=== PATIENT | male | born 1940 | race African-American/Black ===

== ENCOUNTER → 2017-06-05 | Outpatient (CLI) | payer MEDICARE, OTHER ==
[~2017-06-05] MED LIST: AMBI10TA PO; AMLO5TAB2 PO; BP MED; FINA5TAB2 PO; GABA300C5 PO; LIPI20TA PO; LISI-591; LISI40TA PO; METF500T PO
[2017-06-05 11:20] LABS: BLOOD, URINE SMALL (NEG); CALCIUM OXALATE CRYSTALS,URINE OCC /hpf; GLUCOSE,URINE NEG (NEG); KETONE, URINE NEG (NEG); NITRITE,URINE NEG (NEG); TRANSITIONAL EPI CELLS, URINE <1 /hpf; URINE COLOR YELLOW (YELLW/STRAW)
[2017-06-05 11:21] LABS: COMMENT (UR) CULTURE INDICATED; CULTURE IF INDICATED CULTURE INDICATED
[2017-06-05 11:25] LABS: APTT (PATIENT) 26.1 SEC (24.3-30.1)
[2017-06-05 11:26] LABS: AUTOMATED NEUTROPHIL # 3.7 TH/MM3 (1.8-7.7); BASOPHIL % 0.6 % (0.0-2.0); EOSINOPHIL # 0.2 TH/MM3 (0-0.4); EOSINOPHIL % 2.5 % (0.0-4.0); HEMATOCRIT 41.6 % (39.0-51.0); HEMO FLAGS DIFF FINAL; LYMPH % 30.1 % (9.0-44.0); LYMPHOCYTE # 1.8 TH/MM3 (1.0-4.8); MEAN CELL VOLUME 90.7 FL (80.0-100.0); MEAN CORPUSCULAR HEMOGLOBIN 30.3 PG (27.0-34.0); MEAN CORPUSCULAR HGB CONC 33.5 % (32.0-36.0); MONO % 6.1 % (0.0-8.0); NEUT % 60.7 % (16.0-70.0); PLATELET COUNT 199 TH/MM3 (150-450); RED BLOOD COUNT 4.58 MIL/MM3 (4.50-5.90); RED CELL DISTRIBUTION WIDTH 14.9 % (11.6-17.2); WHITE BLOOD COUNT 6.1 TH/MM3 (4.0-11.0)
== END ==
LOC: CPRE 10:45
PROVIDERS: ATTEND Orthopaedic Surgery Orthopaedic Surgery of the Spine
DX: Z01.812 Encounter for preprocedural laboratory examination (principal); M96.1 Postlaminectomy syndrome, not elsewhere classified; M53.2X6 Spinal instabilities, lumbar region; R82.90 Unspecified abnormal findings in urine
CPT/HCPCS: 36415; 81001; 85025; 85610; 85730; 87086

== ENCOUNTER 2017-06-25 07:30 | Inpatient (IN) | payer MEDICARE, OTHER ==
[~2017-06-25] VITALS: Ht 177.8 cm; Wt 96.7 kg
[~2017-06-25 07:30] MED LIST changes: -BP MED; -LISI-591
[2017-07-02] MEDS: CHLORHEXIDINE GLUCONATE 2 % 1 PACK (2 CLOTHS) TOPICAL PRN ×2 (06:45→07:30)
[2017-07-02] MEDS ORDERED: METOPROLOL TARTRATE 25 MG TAB PO PRN (07:00)
[2017-07-02] MEDS ORDERED: INSULIN HUMAN REGULAR 1,000 UNITS/10 ML VIAL SQ PRN (07:00)
[2017-07-02] MEDS ORDERED: POVIDONE IODINE 7.5% SCRUB 118 ML BOTTLE TOPICAL SCH (07:00)
[2017-07-02] MEDS ORDERED: ceFAZolin 2 GM PREMIX 50 ML IV SCH (07:00)
[2017-07-02] MEDS ORDERED: LACTATED RINGER'S 1000 ML IV PRN (07:00)
[2017-07-02] MEDS ORDERED: VANCOMYCIN 1000 MG/NS 250 ML (for <70 kg) IV SCH ×2 (07:00)
[2017-07-02] MEDS ORDERED: SODIUM CHLORID 0.9% 500 ML IV PRN (07:00)
[2017-07-02] MEDS ORDERED: POVIDONE IODINE 5% (ANTISEPSIS KIT) 4 APPLICATIONS EACH NARE PRN (07:00)
[2017-07-02] MEDS ORDERED: GENTAMICIN SULFATE 80 MG/2 ML VIAL ONE (08:48)
[2017-07-02] MEDS ORDERED: LIDOCAINE HCL 1% PF 5 ML SYRINGE OTHER ONE (12:00)
[2017-07-02] MEDS ORDERED: PROPOFOL 200 MG/20 ML AMP IV ONE (12:00)
[2017-07-02] MEDS ORDERED: PHENYLEPH/NS 1000 MCG/10 ML SYR IV ONE (12:00)
[2017-07-02] MEDS ORDERED: ONDANSETRON HCL 4 MG/2 ML VIAL IV ONE (12:00)
[2017-07-02] MEDS ORDERED: NEOSTIGMINE 5 MG/5 ML SYRINGE IV PUSH ONE (12:00)
[2017-07-02] MEDS ORDERED: ROCURONIUM INJ 50 MG/5 ML SYRINGE IV PUSH ONE (12:00)
[2017-07-02] MEDS ORDERED: PHENYLEPHRINE HCL 10 MG/ML VIAL IV ONE (12:00)
[2017-07-02] MEDS ORDERED: ePHEDrine/NS 25 MG/5 ML SYR IV ONE (12:00)
[2017-07-02] MEDS ORDERED: GLYCOPYRROLATE 1 MG/5 ML SYRINGE IV PUSH ONE (12:00)
[2017-07-02] MEDS ORDERED: SOD PHOSPHATE/SOD BIPHOSPHATE (ADULT) ENEMA 133ML PR PRN (13:45)
[2017-07-02] MEDS ORDERED: ZOLPIDEM TARTRATE 10 MG TAB PO PRN (13:45)
[2017-07-02] MEDS ORDERED: ONDANSETRON HCL 4 MG/2 ML VIAL IV PUSH PRN (13:45)
[2017-07-02] MEDS ORDERED: MORPHINE SULFATE 30 MG/30 ML PCA IV SCH (13:45)
[2017-07-02] MEDS ORDERED: NALOXONE HCL 0.4 MG/ML AMP IV PUSH PRN (13:45)
[2017-07-02] MEDS ORDERED: ACETAMINOPHEN/HYDROcodone 325 MG/7.5 MG TAB PO PRN (13:45)
[2017-07-02] MEDS ORDERED: BISACODYL 10 MG SUPP RECTAL PRN (13:45)
[2017-07-02] MEDS ORDERED: ALUMINUM/MAGNESIUM/SIMETH 30 ML CUP PO PRN (13:45)
[2017-07-02] MEDS ORDERED: Post-op Orders (for Pharmacy) XX ONE (13:45)
[2017-07-02] MEDS ORDERED: DEXTROSE 50% IN WATER 50 ML VIAL(D50) IV PUSH PRN (13:45)
[2017-07-02] MEDS ORDERED: MORPHINE SULFATE 8 MG/ML INJ IV PUSH PRN (13:45)
[2017-07-02] MEDS ORDERED: GLUCAGON 1 MG/ML VIAL OTHER PRN (13:45)
--- NOTE | 2017-07-02 13:49 | PD.OP ---
cc: Juan Shepherd. Operative Report Date of Surgery: Jul 02, 2017 Preoperative Diagnosis: Lumbar spinal stenosis. Right lumbosacral radiculopathy. Bilateral lumbosacral radiculitis. Foraminal stenosis right L2-3 and L3 4 Herniated nucleus pulposis L2-3, right, foraminal Postoperative Diagnosis: Same Procedure: Bilateral lumbar laminectomy from the right L2-3 with right subtotal facet resection. Bilateral lumbar laminectomy from the right L3 4 with right subtotal facet resection. Placement of interbody cage L2-3 and L3 4. Posterior lateral interbody fusion L2-3 and L3 4. Posterior spinal fusion L2 to L4, lateral transverse process technique. Posterior spinal segmental instrumentation. Bone grafting of the lumbar spine Anesthesia: Gen. Surgeon: Juan Shepherd Tile Power Shear Operator(s): MY Brito Operation and Findings: EBL: 250 ml NOTE: Sondra Brito PA-C was present for the entire surgical procedure as my preschool assistant. In my medical opinion her skill and care was necessary for proper management of this patient INDICATIONS: This patient is a 76-year-old male with neurologic claudication and weakness into the right leg. Investigative studies shows evidence of high- grade stenosis L2-3 and L3 4 with a significant disc into the foramen at L2-3 with foraminal stenosis and degenerative changes L3 4 with foraminal stenosis to the right. The patient presents for lumbar decompression. Because of the instability that will be created because the decompression, fusion across the same levels is recommended INSTRUMENTATION: Spine wave PROCEDURE: The patient brought to the operating room and anesthetized the supine position. The patient positioned prone on the Isra frame on the Faheem table. All pressure points are protected. The back was scrubbed with alcohol followed by Hibiclens followed by ChloraPrep and draped sterilely and antibiotics were given within a routine time window. A timeout was done. Lateral radiographic images used to identify the proper level for the procedure. Compared care for the preoperative studies. Skin markings were made anticipating surgical treatment. A right paramedian incision was made. The lamina and facet joint was exposed. We used a dilating retractor which was positioned over this region. We started at the L2-3 level. The microscope was rolled into the field for visualization. A high-speed bur was used to take the lamina down and doing a subtotal facet resection. There was a very large disc herniation central and to the right extending into the foramen creating a significant exiting L2 nerve root compression as well as lateral recess decompression of the crossing L3 nerve root. The exiting and crossing nerve roots were completely decompressed. A total discectomy was accomplished. The disc space was prepared. All cartilaginous material from the disc space was removed. A combination of demineralized bone matrix and Nucel stem cells were mixed together on the back table.. These were injected into the disc space. The cage was then placed according to electronic musical instrument repairer's recommendation and deployed. Position was satisfactory. Additional bone graft was placed into the disc space. We moved to the L3 4 level and a likewise fashion the outer edge of the lamina and facet joint was exposed. A dilating retractor was positioned over this region. The microscope was rolled into the field. A high-speed bur was used to take the lamina down performing a subtotal facet resection on that side. There was a mild disc herniation but there was significant degenerative changes in a foraminal stenosis which was resected. The exiting and crossing nerve roots were completely decompressed. A total discectomy was accomplished. The disc space was prepared. All cartilaginous material from the disc space was removed. A combination of demineralized bone matrix and Nucel stem cells were mixed together and injected into the disc space. His placed according to electronic musical instrument repairer 's recommendation and deployed. Position was satisfactory. Additional bone graft was placed into the disc space. The outer edge of the facet joint was identified and prepared. Under fluoroscopic images, a bur was used to gain entrance into the pedicle followed by placement of a blunt probe, an awl and placement of proper length screws. Each screw was charged with electric current there are no abnormal potentials registered in either lower extremity. Screws were placed at L2, L3 and L4. A proper length willy was fitted and attached and tightened according to electronic musical instrument repairer's recommendation. The wound was irrigated copiously. Bone grafting was placed along the lateral gutter in the region of the transverse process across this level. This was closed in layers with #1 Vicryl, 2-0 Vicryl and running intradermal 3-0 Vicryl followed by Steri-Strips and benzoin. On the contralateral side a separate exposure was made. The outer edge of the facet joints were identified. A bur was used to gain entrance into the pedicle followed by placement of a probe and proper length screws. Each screw was charged with electric current and no abnormal potentials registered in either lower extremity. The wound was irrigated copiously. Bone graft placed along the transverse process across this level. It was closed in layers using #1 Vicryl, 2-0 Vicryl and running intradermal 3-0 Vicryl followed by Steri-Strips and benzoin. Intraoperative radiographs were obtained. No complication was appreciated. The patient had a sterile dressing applied. The patient was awakened and taken to recovery room in satisfactory condition. FINDINGS: There was evidence of a high-grade central and right lateral recess stenosis with foraminal stenosis. The decompression was felt be very satisfactory. There is no complication that was appreciated. Screw position appeared to be very satisfactory. Juan Shepherd MD Jul 02, 2017 13:49
[2017-07-02] MEDS ORDERED: HYDR-3580 PO (13:51)
[2017-07-02] MEDS: PCA - TOTAL MG MORPHINE DELIVERED PER SHIFT SCH ×2 (14:00→21:18)
--- NOTE | 2017-07-02 14:14 | RADRPT ---
EXAM DATE/TIME: 07/02/2017 13:35 [facility] COMPARISON: No previous studies available for comparison. INDICATIONS : Laminectomy 2-3 3-4. MEDICAL HISTORY : None. SURGICAL HISTORY : None. ENCOUNTER: Initial ACUITY: 1 day PAIN SCORE: Non-responsive. LOCATION: Bilateral L-spine FINDINGS: AP and crosstable lateral intraoperative images are provided. Posterior pedicle screw/willy and intradi scal fixation in the lumbar spine, likely L2-4 although definitive numbering is not possible due to l imited field of view. Hardware appears intact and well-positioned. Size alignment and is intact. Vert ebral body heights are maintained. CONCLUSION: 1. Status post intradiscal and posterior willy and screw fixation of the lumbar spine, as above. Vel Perera MD on July 02, 2017 at 14:11 Board Certified Radiologist. This report was verified electronically.
[2017-07-02] MEDS ORDERED: DO NOT ADM ANY ANTICOAGULANT DRUGS PRN (14:49)
[2017-07-02] MEDS ORDERED: *morphine SULFATE 8 MG/ML PERIprocedure ONLY ONE (15:15)
[2017-07-02] MEDS: LACTATED RINGER'S 1000 ML INJ 1,000 ML IV SCH (15:50)
[2017-07-02] MEDS: INSULIN NovoLIN REGULAR SUPPLEMENTAL SCALE SQ SCH ×2 (17:00→21:17)
[2017-07-02] MEDS: metFORMIN HCL 500 MG TAB PO SCH (17:57)
[2017-07-02 20:14] VITALS: BP 128/68; PULSE 86; RESP 17; TEMP 99.8; O2SAT 99
[2017-07-02] MEDS: GABAPENTIN 300 MG CAP PO SCH (21:12)
[2017-07-02] MEDS: ATORVASTATIN 20 MG TAB PO SCH (21:12)
[2017-07-02 23:53] VITALS: BP 107/58; PULSE 83; RESP 17; TEMP 99.7; O2SAT 93
[2017-07-03] MEDS: LACTATED RINGER'S 1000 ML INJ 1,000 ML IV SCH ×2 (04:10→21:03)
[2017-07-03 04:18] VITALS: BP 123/64; PULSE 96; RESP 17; TEMP 100.9; O2SAT 93
[2017-07-03] MEDS: ACETAMINOPHEN/HYDROcodone 325 MG/7.5 MG TAB PO PRN ×3 (04:24→16:38)
[2017-07-03] MEDS: PCA - TOTAL MG MORPHINE DELIVERED PER SHIFT SCH ×2 (05:55→21:02)
[2017-07-03 08:00] VITALS: BP 106/57; PULSE 71; RESP 18; TEMP 99.2; O2SAT 94
[2017-07-03] MEDS: INSULIN NovoLIN REGULAR SUPPLEMENTAL SCALE SQ SCH ×4 (08:00→21:02)
[2017-07-03] MEDS: FINASTERIDE 5 MG TAB PO SCH (08:40)
[2017-07-03] MEDS: GABAPENTIN 300 MG CAP PO SCH ×2 (08:41→21:00)
[2017-07-03] MEDS: LISINOPRIL 20 MG TAB PO SCH (08:41)
[2017-07-03] MEDS: metFORMIN HCL 500 MG TAB PO SCH ×2 (08:41→17:07)
[2017-07-03] MEDS: amLODIPine BESYLATE 5 MG TAB PO SCH (08:42)
[2017-07-03 09:34] LABS: HEMATOCRIT 35.9 % (39.0-51.0); REVIEW FLAG FINAL
[2017-07-03] MEDS ORDERED: COMMODE 3-IN-11 MIS (10:16)
[2017-07-03] MEDS ORDERED: WALKER WHEELS/F1 MIS (10:16)
--- NOTE | 2017-07-03 10:20 | HHI.DCPOC ---
Discharge Care Plan Diagnosis: (1) Lumbar spinal stenosis (2) Degenerative disc disease, lumbar Your Health Problems Are: Difficulty with ADL Incision/Drains Inflammation Goals to Promote Your Health * To prevent worsening of your condition and complications * To maintain your health at the optimal level Directions to Meet Your Goals Take your medications as prescribed Follow your dietary instruction Follow activity as directed Keep your appointments as scheduled Take your immunizations and boosters as scheduled If your symptoms worsen call your PCP, if no PCP go to Urgent Care Center or Emergency Room Smoking is Dangerous to Your Health. Avoid second hand smoke Call the 24-hour hour crisis hotline for domestic abuse at Nanda Thomason Jul 03, 2017 10:20
--- NOTE | 2017-07-03 10:22 | HHI.DS ---
Discharge Summary Admission Date Jul 02, 2017 at 06:28 Discharge Date: Jul 04, 2017 Admitting Diagnosis see below Diagnosis: (1) Lumbar spinal stenosis Diagnosis: Principal ICD Codes: M48.061 - Spinal stenosis, lumbar region without neurogenic claudication (2) Degenerative disc disease, lumbar Diagnosis: Principal ICD Codes: M51.36 - Other intervertebral disc degeneration, lumbar region Procedures Laminectomy L23, L34, Posterior lumbar fusion, Posterolateral interbody fusion with cages L23 L34, posterior spinal segmental instrumentation, bone graft Brief History This is a 76 year old male patient CBC/BMP: 07/03/17 0850 Significant Findings Laboratory Tests Test 07/03/17 08:50 Hemoglobin 12.2 GM/DL (13.0-17.0) Hematocrit 35.9 % (39.0-51.0) Pt Condition on Discharge: Stable Discharge Disposition: Disch w/ Home Health Serv Discharge Instructions Diet Instructions: High Fiber Diet Activities You Can Perform: Weight Bearing as Duyen, See Additionl Instruction Additional Activity Instruc.: No bending lifting stopping New Medications: Commode 3-in-1 (Commode 3-in-1) 1 Mis Mis EA .ROUTE DIRECTED, #1 0 Refills Walker with Front Wheels (Walker with Front Wheels) 1 Mis Mis EA .ROUTE DIRECTED, #1 0 Refills Hydrocodone/Acetaminophen (Hydrocodone-Acetamin 7.5-325) 7.5 Mg-325 Mg Tablet 1 TAB PO Q4H PRN for PAIN SCALE 1 TO 5, #50 TAB Continued Medications: Amlodipine (Amlodipine) 5 Mg Tab 5 MG PO DAILY for Blood Pressure Management, #30 TAB 0 Refills Atorvastatin (Lipitor) 20 Mg Tab 20 MG PO HS for Cholesterol Management, #30 TAB 0 Refills Finasteride (Finasteride) 5 Mg Tab 5 MG PO DAILY for Manage Prostate Problems, #30 TAB 0 Refills Do not crush. Gabapentin (Gabapentin) 300 Mg Cap 300 MG PO BID, #60 CAP 0 Refills Lisinopril (Lisinopril) 40 Mg Tab 40 MG PO DAILY for Blood Pressure Management, #30 TAB 0 Refills Metformin (Metformin) 500 Mg Tab 500 MG PO BIDPC for Blood Sugar Management, #60 TAB 0 Refills Zolpidem (Ambien) 10 Mg Tab 10 MG PO HS PRN for INSOMNIA, TAB 0 Refills Nanda Thomason Jul 03, 2017 10:22
--- NOTE | 2017-07-03 10:24 | HHI.FF ---
Face to Face Verification Diagnosis: (1) Lumbar spinal stenosis (2) Degenerative disc disease, lumbar Physical Therapy Gait training, Safety evaluation, Transfer training, bed to chair S/P Spinal Fusion: Gait training with walker, Weight bearing as tolerated, No twisting of torso, No bending Additional Instructions PT 4 days/wk for 1 week. WBAT. Out of bed with brace. Gait training. Nursing RN Days per Week: 2 x Week(s): 1 Dressing Changes: Do not change dressing Additional Instructions Do not change dressing unless saturated. Vitals assessment. I have seen patient Adarsh Rao on 07/03/17. My clinical findings support the need for the requested home health care services because: Limited ability to care for self High risk of falls I certify that my clinical findings support that this patient is homebound because: Post-op weakness Unsteady gait/balance Nanda Thomason Jul 03, 2017 10:24
[2017-07-03 12:00] VITALS: BP 164/75; PULSE 80; RESP 18; TEMP 97.8; O2SAT 94
--- NOTE | 2017-07-03 13:13 | PD.ORT.PN ---
Subjective Subjective Remarks Doing alright but notes 'his back is very sore'. He notes moderate back aching and sharp pains with movement. He states he things his legs are better. He denies any CP or SOB. Questions about surgery. Some nausea this morning but resolved now. Objective Vitals Vital Signs Date Time Temp Pulse Resp B/P (MAP) Pulse Ox O2 Delivery O2 Flow Rate FiO2 07/03/17 11:24 20 07/03/17 08:00 99.2 71 18 106/57 (73) 94 07/03/17 05:55 18 07/03/17 04:18 100.9 96 17 123/64 (83) 93 07/02/17 23:53 99.7 83 17 107/58 (74) 93 07/02/17 21:18 18 07/02/17 20:14 99.8 86 17 128/68 (88) 99 07/02/17 15:49 15 07/02/17 15:45 98.7 75 16 112/55 (74) 99 Nasal Cannula 2 07/02/17 15:30 76 13 114/59 (77) 99 Nasal Cannula 3 07/02/17 15:15 78 17 120/64 (82) 99 Nasal Cannula 3 07/02/17 15:00 81 16 124/66 (85) 99 Nasal Cannula 3 07/02/17 14:48 98.5 82 20 131/71 (91) 100 Nasal Cannula 3 I/O 07/02/17 07/02/17 07/02/17 07/03/17 07/03/17 07/03/17 07:00 15:00 23:00 07:00 15:00 23:00 Intake Total 1700 ml 611 ml 2826 ml 100 ml Output Total 700 ml 925 ml 700 ml Balance 1000 ml -314 ml 2126 ml 100 ml Intake Oral 600 ml 360 ml IV Total 11 ml 2466 ml 100 ml Other 1700 ml Output Urine Total 400 ml 925 ml 700 ml Estimated Blood Loss 300 ml # Bowel Movements 0 0 Result Diagram: 07/03/17 0850 Procedures Laminectomy L23, L34, Posterior lumbar fusion, Posterolateral interbody fusion with cages L23 L34, posterior spinal segmental instrumentation, bone graft Objective Remarks Sitting up in bed NAD VSS L/S Dressing c/d/i, mild SS drainage, no erythema, mild spasm +motor at, +sens, +nvi Neg homans bilaterally Assessment & Plan Ortho Post Op Day #: 1 Problem List: (1) Lumbar spinal stenosis ICD Codes: M48.061 - Spinal stenosis, lumbar region without neurogenic claudication Qualifiers: Qualified Codes: M48.062 - Spinal stenosis, lumbar region with neurogenic claudication (2) Degenerative disc disease, lumbar ICD Codes: M51.36 - Other intervertebral disc degeneration, lumbar region Assessment and Plan pod#1 s/p Lami Fusion L23, L34 Ortho stable. PO pain meds as needed. Nausea resolved but anti-emetics written as needed. PT - WBAT. Out of bed with brace for 10 weeks. Hold dressing change unless saturated. Encouraged IS. D/C planning, [facility]. F2F written. Nanda Thomason Jul 03, 2017 13:13
[2017-07-03 16:00] VITALS: BP 121/61; PULSE 90; RESP 18; TEMP 99.7; O2SAT 100
[2017-07-03 20:26] VITALS: BP 119/71; PULSE 88; RESP 17; TEMP 98.8; O2SAT 93
[2017-07-03] MEDS: ATORVASTATIN 20 MG TAB PO SCH (21:00)
[2017-07-03] MEDS: DOCUSATE SODIUM 100 MG CAP PO SCH (21:00)
[2017-07-04 00:15] VITALS: BP 142/78; PULSE 88; RESP 17; TEMP 99.5; O2SAT 96
[2017-07-04] MEDS: ACETAMINOPHEN/HYDROcodone 325 MG/7.5 MG TAB PO PRN ×2 (02:20→09:11)
[2017-07-04] MEDS: PCA - TOTAL MG MORPHINE DELIVERED PER SHIFT SCH (02:21)
[2017-07-04 04:15] VITALS: BP 133/68; PULSE 87; RESP 17; TEMP 98.7; O2SAT 95
--- NOTE | 2017-07-04 07:59 | PD.ORT.PN ---
Subjective Subjective Remarks No complaints. Had urinary retention which is not new for him. Camp placed with 750 cc residual. Very comfortable. Ambulating without difficulty Objective Vitals Vital Signs Date Time Temp Pulse Resp B/P (MAP) Pulse Ox O2 Delivery O2 Flow Rate FiO2 07/04/17 04:15 98.7 87 17 133/68 (89) 95 07/04/17 00:15 99.5 88 17 142/78 (99) 96 07/03/17 20:26 98.8 88 17 119/71 (87) 93 07/03/17 17:38 20 07/03/17 16:00 99.7 90 18 121/61 (81) 100 07/03/17 12:00 97.8 80 18 164/75 (104) 94 07/03/17 08:00 99.2 71 18 106/57 (73) 94 I/O 07/03/17 07/03/17 07/03/17 07/04/17 07/04/17 07/04/17 07:00 15:00 23:00 07:00 15:00 23:00 Intake Total 2826 ml 700 ml 360 ml 240 ml Output Total 700 ml 75 ml 1100 ml 600 ml Balance 2126 ml 625 ml -740 ml -360 ml Intake Oral 360 ml 600 ml 360 ml 240 ml IV Total 2466 ml 100 ml Output Urine Total 700 ml 75 ml 1100 ml 600 ml Bladder Scan Volume Amount 650 ml # Voids 1 # Bowel Movements 0 0 0 0 Result Diagram: 07/03/17 0850 Procedures Laminectomy L23, L34, Posterior lumbar fusion, Posterolateral interbody fusion with cages L23 L34, posterior spinal segmental instrumentation, bone graft Objective Remarks Sitting up in bed NAD VSS L/S Dressing c/d/i, mild SS drainage, no erythema, mild spasm +motor at, +sens, +nvi Neg homans bilaterally Assessment & Plan Problem List: (1) Lumbar spinal stenosis ICD Codes: M48.061 - Spinal stenosis, lumbar region without neurogenic claudication Qualifiers: Qualified Codes: M48.062 - Spinal stenosis, lumbar region with neurogenic claudication (2) Degenerative disc disease, lumbar ICD Codes: M51.36 - Other intervertebral disc degeneration, lumbar region Assessment and Plan pod#2 s/p Lami Fusion L23, L34 Ortho stable. [place] for pain. Continue Camp catheter on discharge and follow-up with urologist on Saturday. Arrangements will be made line discharged to home today. No dressing change. Walker. Brace full-time when out of bed F2F written. Juan Shepherd MD Jul 04, 2017 07:59
[2017-07-04 08:00] VITALS: BP 96/76; PULSE 88; RESP 18; TEMP 99; O2SAT 93
[2017-07-04] MEDS: INSULIN NovoLIN REGULAR SUPPLEMENTAL SCALE SQ SCH (08:00)
[2017-07-04] MEDS: LISINOPRIL 20 MG TAB PO SCH (09:00)
[2017-07-04] MEDS: amLODIPine BESYLATE 5 MG TAB PO SCH (09:00)
[2017-07-04] MEDS: DOCUSATE SODIUM 100 MG CAP PO SCH (09:10)
[2017-07-04] MEDS: GABAPENTIN 300 MG CAP PO SCH (09:10)
[2017-07-04] MEDS: FINASTERIDE 5 MG TAB PO SCH (09:10)
[2017-07-04] MEDS: metFORMIN HCL 500 MG TAB PO SCH (09:10)
== END 2017-07-04 10:58 | disposition home health service (06) | DRG 460 ==
LOC: HSDI 07-02 06:28 → N06B 07-02 16:07
PROVIDERS: ADMIT Orthopaedic Surgery Orthopaedic Surgery of the Spine; ATTEND Orthopaedic Surgery Orthopaedic Surgery of the Spine
PROC: 0ST20ZZ Resection of Lumbar Vertebral Disc, Open Approach (ICD-10-PCS; 2017-07-02)
PROC: 0QU007Z Supplement Lumbar Vertebra with Autologous Tissue Substitute, Open Approach (ICD-10-PCS; 2017-07-02)
PROC: 0SG10AJ Fusion of 2 or more Lumbar Vertebral Joints with Interbody Fusion Device, Posterior Approach, Anterior Column, Open Approach (ICD-10-PCS; 2017-07-02)
PROC: 0SG10AJ Fusion of 2 or more Lumbar Vertebral Joints with Interbody Fusion Device, Posterior Approach, Anterior Column, Open Approach (ICD-10-PCS; principal; 2017-07-02 09:51)
DX: M48.062 Spinal stenosis, lumbar region with neurogenic claudication (principal); M53.2X6 Spinal instabilities, lumbar region; M51.36 Other intervertebral disc degeneration, lumbar region; R11.0 Nausea; R33.9 Retention of urine, unspecified
CPT/HCPCS: 72100; 76000; 82948; 85014; 85018; 86850; 86900; 86901; 94150; C1713; J0690; J1580; J2270; J2370; J2405; J2710; J3010; J3370; J7050; J7120